=== PATIENT | female | born 1980 | race Caucasian/White ===

== ENCOUNTER → 2020-06-01 14:15 | Outpatient (CLI) | payer OTHER, SELFPAY ==
--- NOTE | 2020-06-01 14:20 | MR_ITS ---
PROCEDURE: MR LUMBAR SPINE WO CON CLINICAL INDICATION: LEFT LUMBAR RADICULOPATHY PAIN WORSE WHEN SITTING OR LAYING. SYMPTOMS [id number] BUT LBP WORSE ON LT SIDE. PAIN, NUMBNESS, AND TINGLING DOWN LT LEG. NO INJURY. PRIOR X-RAY 07-26-16 COMPARISON: No exams were available for comparison TECHNIQUE: Standard multiplanar multiecho sequences are performed without contrast. 3-D MIP and myelographic images are also rendered and reviewed FINDINGS: There is normal alignment. The spinal cord ends at the T12-L1 level. L1-L2: Unremarkable. L2-L3: Unremarkable. L3-L4: Unremarkable. L4-5: Unremarkable. L5-S1: There is a moderate to large size central and left paracentral disc protrusion which is compressing upon the left S1 nerve root. Degenerative disc disease is present at this level with type 2 endplate changes. The protruding disc is causing canal stenosis centrally and on the left with severe left lateral recess narrowing. IMPRESSION: There is a moderate to large size central and left paracentral disc protrusion at L5-S1 which is compressing upon the left S1 nerve root. Degenerative disc disease is present at this level with type 2 endplate changes. The protruding disc is causing canal stenosis centrally and on the left with severe left lateral recess narrowing. Dictated by: Francisco Terrazas MD 06/02/2020 09:47 Francisco Terrazas MD in [place] 06/02/2020 09:47
== END ==
PROVIDERS: PCP Family Medicine; Visit Provider Family Medicine
DX: M54.16 Radiculopathy, lumbar region (principal)
CPT/HCPCS: 72148; 76376

== ENCOUNTER → 2021-07-05 13:19 | Outpatient (CLI) | payer OTHER, SELFPAY | PROVIDERS: Visit Provider Nurse Practitioner | DX: Z20.822 Contact with and (suspected) exposure to COVID-19 (principal) | CPT/HCPCS: C9803; U0003; U0005 ==

== ENCOUNTER → 2022-03-31 13:09 | Outpatient (CLI) | payer OTHER, SELFPAY ==
--- NOTE | 2022-03-31 13:09 | US_ITS ---
PROCEDURE INFORMATION: Exam: US Right Breast, Complete Exam date and time: 03/31/2022 1:43 PM Age: 41 years old Clinical indication: Mass, lump, or swelling; Right; Additional info: Right breast mass at 10:00 TECHNIQUE: Imaging protocol: Complete ultrasound of all four quadrants of the Right breast and the retroareolar regions, including ultrasound of the axilla when performed. COMPARISON: MG MM DIG MAMM BI DX W/CAD 03/31/2022 1:15 PM FINDINGS: Breast: High resolution sonography of the RIGHT breast at the site of palpable abnormality at 10 o'clock position 10 cm from the nipple corresponds to a markedly hypodense spiculated nodule measuring approximately 3.9 x 3.6 x 2.0 cm with internal vascularity. . Smaller complex cystic nodules at 1 o'clock position 4 cm from the nipple measures 1.1 x 1.1 x 0.7 cm; and at 5 o'clock position 2 cm from the nipple measures 3 x 5 x 6 mm. . Lymph nodes: Enlarged RIGHT axillary lymph nodes measuring up to 2 cm in the long axis. IMPRESSION: 1. Spiculated nodule at 10 o'clock position corresponding to the palpable abnormality highly suspicious for malignancy (concordant with recent mammogram). Recommend biopsy. 2. Complex cystic nodules at 1 and 5 o'clock positions as described. 3. Enlarged RIGHT axillary lymph nodes may represent metastatic disease. ASSESSMENT: BI-RADS 5: Highly Suggestive of Malignancy: Appropriate Action Should Be Taken (likelihood of cancer is more than 95%)
--- NOTE | 2022-03-31 13:09 | MM_ITS ---
PROCEDURE INFORMATION: Exam: US Right Breast, Complete MG Right Diagnostic Breast Tomosynthesis Exam date and time: 03/31/2022 1:15 PM Age: 41 years old Clinical indication: Concern for right breast lump. No family history of breast cancer. TECHNIQUE: Imaging protocol: Complete ultrasound of all four quadrants of the Right breast and the retroareolar regions, including ultrasound of the axilla when performed. Right Diagnostic tomosynthesis and 2D mammography including computer-aided detection (CAD) when performed. Unilateral or bilateral exam. COMPARISON: No relevant prior studies available. FINDINGS: MAMMOGRAPHY: Breast composition: The breasts are heterogeneously dense, which may obscure small masses. Mass: Palpable finding at the triangular marker corresponds to a 3.7 cm spiculated mass/asymmetry in the right upper upper outer quadrant, posterior 3rd. Architectural distortion: None. Calcifications: Punctate calcifications more regionally in the left upper breast, inner and outer quadrants, middle 3rd. Asymmetric density: None. Skin thickening: None. Axillary adenopathy: Borderline dense axillary nodes bilaterally. ULTRASOUND: Right sonography, all 4 quadrants, retroareolar and axilla. At the palpable area at 10 o'clock 10 cm from the nipple, corresponding to the mammographic finding as well is an irregular solid slightly vascular mass measuring 3.9 x 2.0 by 3.6 cm is highly suspicious for cancer. Several complicated cysts, at 1 o'clock 4 cm from the nipple measuring 1.1 x 1.1 x 0.8 cm, at 5 o'clock 2 cm from the nipple measuring 0.6 by 0.5 x 0.3 cm. Several axillary lymph nodes, with suggestion of thickened elpidio, may be abnormal. IMPRESSION: See comment Palpable mass in the right breast at 10 o'clock corresponds mammographic and sonographic mass which is highly suspicious for cancer and ultrasound-guided biopsy is recommended. Indeterminate right axillary lymph nodes, suggest ultrasound-guided fine-needle aspiration as clinically indicated. For left breast calcifications, recommend adding magnification views in CC and true lateral. For possible dense left axillary lymph nodes, suggest adding left axillary ultrasound. ASSESSMENT: BI-RADS Category 5: Highly suggestive of malignancy
== END ==
PROVIDERS: PCP Obstetrics & Gynecology; Visit Provider Obstetrics & Gynecology
DX: N63.11 Unspecified lump in the right breast, upper outer quadrant (principal)
CPT/HCPCS: 76641; 77062; 77066; G0279

== ENCOUNTER → 2022-04-13 08:16 | Outpatient (CLI) | payer OTHER, SELFPAY ==
--- NOTE | 2022-04-13 08:16 | US_ITS ---
FINAL REPORT CLINICAL HISTORY: RT breast nodule 10:00, dr ferrell FINDINGS: Ultrasound directed FNA right axillary lymph node History: Right breast mass. Mild right axillary adenopathy Technique: Standard written informed consent was obtained. A few borderline enlarged lymph nodes were identified in the right axilla. Largest most accessible lymph node was targeted for FNA. Due to small size and depth of the lymph node FNA was performed. Approximately 3 passes were made with a 25-gauge needle. Specimen was submitted in appropriate fluid for cytology. IMPRESSION: Technically successful FNA of right axillary lymph node Authenticated and ERN
--- NOTE | 2022-04-13 09:03 | MM_ITS ---
FINAL REPORT CLINICAL HISTORY: .s/p clip placement FINDINGS: MAMMOGRAM RIGHT TECHNIQUE: Standard digital 2-D views COMPARISON: None DENSITY: There are scattered areas of fibroglandular density FINDINGS: Post biopsy marker clip is noted to be in satisfactory position. The clip is noted in the anterior portion of the right upper outer quadrant mass. Postbiopsy changes are noted. IMPRESSION: Biopsy marker clip in good position Authenticated and ERN
--- NOTE | 2022-04-13 09:19 | US_ITS ---
FINAL REPORT CLINICAL HISTORY: Right breast mass FINDINGS: ULTRASOUND-GUIDED RIGHT BREAST CORE BIOPSY TECHNIQUE: Limited images were obtained to localize region of interest. The right breast was prepped in a routine sterile fashion and locally anesthetized with 1% lidocaine. Standard written informed consent was obtained. The biopsy needle was positioned within the outer periphery of the lesion. A total of 3 passes were made with a 16 gauge core biopsy needle. A biopsy marker clip was deployed in satisfactory position. Postbiopsy mammogram showed postbiopsy changes with clip in satisfactory position. Procedure was well tolerated . CONCLUSION: 1. Technically successful ultrasound guided core biopsy of right breast lesion as above. 2. 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 Authenticated and ERN
== END ==
PROVIDERS: PCP Obstetrics & Gynecology; Visit Provider Surgery
DX: N63.12 Unspecified lump in the right breast, upper inner quadrant (principal); R59.9 Enlarged lymph nodes, unspecified
CPT/HCPCS: 10005; 19083; 77065

== ENCOUNTER → 2022-04-20 14:14 | Outpatient (CLI) | payer OTHER, SELFPAY ==
--- NOTE | 2022-04-20 14:14 | US_ITS ---
PROCEDURE INFORMATION: Exam: US Left Non-Vascular Joint or Other Extremity Structure Exam date and time: 04/20/2022 3:30 PM Age: 41 years old Clinical indication: Condition or disease and abnormal findings; Abnormal imaging study; Lt axillary only to eval nodes-- recent dx of RT braest CA; Other: Abn mamm; Patient HX: Eval lt axillary for nodes recent dx RT breast CA; Additional info: Breast mass TECHNIQUE: Imaging protocol: Left US joint or other nonvascular extremity structure or structures. Real-time ultrasound with image documentation. Limited study. Exam focused on the upper extremity in the region of clinical interest. COMPARISON: No relevant prior studies available. FINDINGS: Soft tissues: Unremarkable. No loculated collections. Lymph nodes: There are multiple variably-sized lymph nodes, all of which demonstrate reniform appearance, fatty hilum and hypoechoic cortex. IMPRESSION: Multiple nodes without suspicious features.
--- NOTE | 2022-04-20 14:14 | MM_ITS ---
PROCEDURE INFORMATION: Exam: Left Diagnostic Breast Tomosynthesis Exam date and time: 04/20/2022 2:07 PM Age: 41 years old Clinical indication: Patient recalled on the basis of a screening mammogram for further evaluation; Left breast; calcifications TECHNIQUE: Imaging protocol: Left Diagnostic tomosynthesis and 2D mammography including computer-aided detection (CAD) when performed. Unilateral or bilateral exam. COMPARISON: No relevant prior studies available. FINDINGS: MAMMOGRAPHY: Digital diagnostic magnification views of the left upper outer quadrant demonstrates scattered punctate calcifications without tight clustering. The calcifications are benign. There is a typographical error in the original report dated 03/31/2022. There are no suspicious calcifications in the left medial breast IMPRESSION: Benign left breast calcifications. Recent diagnosis of contralateral breast cancer. ASSESSMENT: BI-RADS Category 2: Benign, based on the left-sided diagnostic images
== END ==
PROVIDERS: PCP Surgery; Visit Provider Surgery
DX: R92.8 Other abnormal and inconclusive findings on diagnostic imaging of breast (principal); R59.9 Enlarged lymph nodes, unspecified
CPT/HCPCS: 76882; 77061; 77065; G0279

== ENCOUNTER → 2022-05-02 11:53 | Outpatient (CLI) | payer OTHER, SELFPAY ==
[2022-05-02 12:50] LABS: Basophils # 0.1 K/mm3 (0-0.2); Basophils % 0.7 % (0.1-2.0); Eosinophils # 0.1 K/mm3 (0.0-0.4); Eosinophils % 0.5 % (0.1-12.0); Hematocrit 45.9 % (37.0-47.0); Hemoglobin 14.7 g/dL (12.2-16.2); Lymphocytes # 2.8 K/mm3 (0.7-4.5); Lymphocytes % 31.6 % (10-50); Mean Corpuscular HGB Conc 32.1 g/dL (31.8-35.4); Mean Corpuscular Hemoglobin 29.8 pg (27.0-31.2); Mean Corpuscular Volume 92.9 fl (81-99); Monocytes # 0.3 K/mm3 (0.1-1.0); Monocytes % 3.8 % (1.7-9.3); Neutrophils # 5.5 K/mm3 (1.8-7.8); Neutrophils % 63.3 % (37.0-80.0); Platelet Count 334 K/mm3 (142-424); Red Blood Count 4.94 M/mm3 (4.20-5.40); Red Cell Distribution Width 13.6 % (11.5-17.5); White Blood Count 8.7 K/mm3 (4.8-10.8)
[2022-05-02 13:11] LABS: Urine Pregnancy, HCG Qual. Negative (Negative)
[2022-05-02 14:10] LABS: Anion Gap 16.9 mEq/L (5-15); Blood Urea Nitrogen 8 mg/dl (7-17); Calcium 10.2 mg/dl (8.4-10.2); Carbon Dioxide 23 mmol/L (22.0-30.0); Chloride 105 mmol/L (98-107); Estimated Glomerular Filt Rate 111 ml/min (>60); GFR (African American) 134 ML/MIN (>60); Glucose 93 mg/dl (74-100); Potassium 3.9 mmoL/L (3.5-5.1); Sodium 141 mmol/L (136-145)
== END ==
PROVIDERS: PCP Obstetrics & Gynecology; Visit Provider Surgery
DX: Z01.812 Encounter for preprocedural laboratory examination (principal); N63.10 Unspecified lump in the right breast, unspecified quadrant
CPT/HCPCS: 36415; 80048; 81025; 85025

== ENCOUNTER 2022-05-04 09:39 | Observation (INO) | payer OTHER, SELFPAY ==
[2022-05-04] VITALS (16 sets, daily range): BP systolic 113–141; BP diastolic 70–89; PULSE 75–100; RESP 12–18; TEMP 36.4–43; O2SAT 98–100; BMI 23.0; BMI 27.3
--- NOTE | 2022-05-04 10:15 | NM_ITS ---
FINAL REPORT CLINICAL HISTORY: RT BREAST SENTINEL NODE INJ FINDINGS: SENTINEL NODE INJECTION HISTORY: Breast cancer. Injection for sentinel lymph node localization TECHNIQUE: Right breast was prepped in a routine sterile fashion. 6 separate subdermal injections of radiotracer agent were made in the periareolar region. A total of 1.55 mCi of technetium labeled sulfur colloid was utilized for injection. IMPRESSION: Technically successful right breast injection for sentinel lymph node localization Authenticated and ERN
--- NOTE | 2022-05-04 11:19 | P.PN_ITS ---
[facility] Disclaimer: The information contained in this section may have been updated after the patient was seen, as this information can be updated by other users. Medical History Breast cancer Surgical History H/O laparoscopy H/O lumbar discectomy H/O tubal ligation History of breast biopsy History of cholecystectomy History of sinus surgery Family History Other Hypertension Social History Smoking Status: Former smoker alcohol intake: never substance use type: denies use current occupational status: employed Travel in the last 8 weeks: Inside the [place] household members: spouse housing: house lives independently: Yes marital status: education level: high school sexually active: Yes special shantell needs: No agree to transfusion: No do you feel safe at home: Yes victim of physical abuse: No victim of emotional abuse: No victim of sexual abuse: No would you like helpful sources: No [facility] Anesthesia Checklist Patient Identification Patient Identification: Verbal (Name & ) Structural Data Admitted From: Home Planned Operative Procedure/s: mastectomy NPO Status Verified Time NPO: 00:00 Additional verifications Anesthesia Reactions: No Hx Blood Transfusions: No Blood Transfusion Reaction: No Airway Assessment C-Spine Mobility Assessed: Yes TMJ Mobility Assessed: Yes Dentition: Good Dentition Neurological Assessment Level of Consciousness: Awake, Alert and Appropriate Anesthesia Plan Anesthesia Risk discussed: Yes Anesthesia Plan: Verified ASA Class: II Anesthesia Type: General
--- NOTE | 2022-05-04 12:00 | EXP.GEN.HP ---
HPI HPI HPI: This is a 41-year-old female with newly-diagnosed right breast cancer. HPI from recent outpatient evaluation forwarded below. Forwarded from recent outpatient evaluation: Details: The patient returns for follow-up of right axillary ultrasound fine-needle aspiration and right breast mass core needle biopsy.? She is scheduled to undergo additional left mammogram views later today. 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 The patient is also being evaluated by Dr. Mcintyre and is likely to undergo endometrial ablation.? Please see truncated portion of intraoffice sophia forwarded below. Forwarded from interoffice sophia (Dr. Mcintyre): I called her with negative BRCA results She has f/u with Dr. Baires on 04/20 to discuss biopsy results and surgical plans for breast cancer I asked her to call us after that appointment because she is having excessive bleeding and cancer is both estrogen and progesterone receptor positive, so we cannot use any hormonal medical therapies for treatment of bleeding and she will need to have endometrial ablation Once she is scheduled for breast surgery, I would like to try and coordinate to do ablation while she is already under anesthesia for breast surgery [facility] Disclaimer: The information contained in this section may have been updated after the patient was seen, as this information can be updated by other users. Medical History Breast cancer Surgical History H/O laparoscopy H/O lumbar discectomy H/O tubal ligation History of breast biopsy History of cholecystectomy History of sinus surgery Family History Other Hypertension Social History Smoking Status: Former smoker alcohol intake: never substance use type: denies use current occupational status: employed Travel in the last 8 weeks: Inside the [place] household members: spouse housing: house lives independently: Yes marital status: education level: high school sexually active: Yes special shantell needs: No agree to transfusion: No do you feel safe at home: Yes victim of physical abuse: No victim of emotional abuse: No victim of sexual abuse: No would you like helpful sources: No Meds Home Medications and Allergies Home Medications Medication Instructions Recorded Confirmed Type ascorbic acid (vitamin C) 100 mg 100 mg PO DAILY Supplement 04/28/22 05/04/22 History tablet (Vitamin C) New Prescriptions to Start Prescriptions: Allergies Allergy/AdvReac Type Severity Reaction Status Date / Time gabapentin Allergy Mild vomiting Verified 05/03/22 10:17 and passed out adhesive AdvReac Verified 05/04/22 08:21 Exam Data for Last 24 hours Vital signs and Labs for Last 24 Hours: Temp Pulse Resp BP Pulse Ox 98.9 F 100 H 18 130/83 100 05/04/22 08:23 05/04/22 08:23 05/04/22 08:23 05/04/22 08:23 05/04/22 08:23 I & O for Last 24 hours: Intake & Output 05/02/22 05/03/22 05/04/22 05/05/22 11:59 11:59 11:59 11:59 Weight 130 lb Constitutional Constitutional: no acute distress *Routine HEENT Exam Head: Present normocephalic Eye: Present EOMI ENT: Present mucous membranes moist *Routine Neck Exam Neck: Present full ROM Routine Chest/Breast/Axilla Exam Breast: Present mass Comments: Unchanged right breast mass (right axillary tail) *Routine Respiratory Exam Respiratory: Absent respiratory distress *Routine Cardiovascular Exam Cardiovascular: Present RRR *Routine Abdominal E
--- NOTE | 2022-05-04 12:33 | P.OP_ITS ---
Date of procedure: 05/04/22 Pre-op Diagnosis:: 1. Heavy Menstrual Bleeding 2. Dysfunctional Uterine Bleeding 3. ER and NM Receptor Positive Breast Cancer Post-op Diagnosis:: Same Procedure performed:: Diagnostic Hysteroscopy Novasure Endometrial Ablation Surgeon:: Natacha Mcintyre MD Piano Refinisher(s):: None COMPLIANCE INTERN:: Thierry Nazario Anesthesia: GETA Estimated blood loss (mL): 5 Operative findings:: Normal appearing uterine cavity without visible polyps or fibroids Operative note:: The patient was taken to the OR for scheduled sentinal node biopsy and right mastectomy. Because her breast cancer precludes hormonal management of the heavy and dysfunctional uterine bleeding that she is currently experiencing, arrangements were coordinated to perform an endometrial ablation while she was under anesthesia for her breast procedures. The breast procedures are documented by her general surgeon, Dr. David Baires, and I performed the endometrial ablation between the sentinal node and mastectomy. After the sentinal node biopsy had been completed, she was repositioned in lithotomy position and the vagina was prepped. The cervix was dilated until the hysteroscope could be accomodated. The hysteroscope was introduced through the cervix into the uterus and the cavity surveyed. No fiborids or polyps were observed within the cavity, and the cavity appeared normal. The hysteroscope was removed and the Novasure device was introduced into the uterus. The cavity length was measured at 5.5cm and width at 4.5cm, and the cavity assessment was successful. The Novasure was deployed and the endometrial ablation was completed in 118seconds, and without complication. All instruments were removed from her vagina, and the patient was repositioned into a supine position for the subsequent mastectomy. Condition: stable Disposition: PACU Specimens:: None Complications:: None
--- NOTE | 2022-05-04 13:45 | SUR.OPER ---
procedures done separately. All counts and sterile draping completed between cases. Dr. arellano Senitinel node procedure started at 1113 and ended at 1128. hy/solange procedure started at 1148 and ended at 1255. right mastectomy start time 1228-end time completed on chart
--- NOTE | 2022-05-04 14:22 | P.PNANES_ITS ---
[facility] Anesthesia Record Part I Anesthesia Record I Intake, IV Amount: 1,800 Estimated blood loss (mL): 100 Urine output (mL): 200 Blood Pressure: 125/75 SaO2: 98 Pulse Rate: 86 Respiratory Rate: 12 Temperature: 97.6 F Patient is:: Awake and Stable Stable to PACU at:: 14:15
--- NOTE | 2022-05-04 14:31 | P.OP_ITS ---
Date of procedure: 05/04/22 Pre-op Diagnosis:: Right breast cancer Post-op Diagnosis:: Same Procedure performed:: Right axillary sentinel lymph node biopsy Right mastectomy Surgeon:: Steve Baires MD RESTAURANT ASSOCIATE:: David Morrell Anesthesia: GETA Estimated blood loss (mL): 100 Operative findings:: Minimal radioisotope uptake beyond the axillary tail mass Mild uptake of methylene blue within resected lymph nodes Diagonal incision secondary to axillary tail location of cancer Operative note:: After informed consent was obtained the patient was taken to the radiology department where injection of radioisotope was completed. Please see separate procedure report for detail. She was then transferred to the operative suite where her right axillary region was prepped and draped in a sterile fashion. Neoprobe evaluation revealed a mid axillary location for incision. The region was infiltrated with 1% lidocaine. Once the incision was completed electrocautery was utilized to transect through the deeper subcutaneous tissue. Firm/mobile lymph nodes were palpated in the deep axilla. The lymph nodes were carefully elevated. Minimal Neoprobe uptake was noted. The lymph nodes were transected free from surrounding tissue and passed off for pathologic evaluation. Separate evaluation for radioisotope uptake revealed no significant reading. A small amount of blue dye was noted. Essentially, the axillary tail mass was the only region of uptake (only background readings noted before and after resection of lymph nodes). Palpation revealed no additional firm nodes in the region. The wound was irrigated and skin was reapproximated with 4-0 nylon. Sterile dressings were applied and the patient was then prepped and draped for her gynecologic procedure performed by Dr. Mcintyre. Please see separate operative report for detail. Once the gynecologic procedure was completed the patient's right chest/breast was prepped and draped in a sterile fashion. An elliptical incision to include the axillary mass was then completed in a diagonal fashion . Tissue flaps were carefully raised with electrocautery along the superior and inferior margins. The underlying breast tissue was then resected from the musculature utilizing electrocautery. The dissection did approach the axillary region laterally secondary to the location of the primary tumor. Although a formal axillary dissection was not completed, a portion of the axillary contents were included with the specimen. The specimen was marked for orientation and passed off for pathologic evaluation. Skin was then reapproximated with interrupted 4-0 nylon after 10 flat Farhan-Simmons drains (x2) were placed through 2 separate stab incisions. One drain was placed in the axillary region and one was placed along the pectoralis. Dressings were applied and the patient was transferred to recovery in stable condition after extubation. Condition: stable Disposition: PACU Specimens:: Right axillary sentinel lymph node Right mastectomy Complications:: No immediate
--- NOTE | 2022-05-04 15:05 | SUR.PHASEI ---
[id number] called and gave detailed report to Torito Mike RN [id number] transported via bed to med/surg. vital signs stable. denies pain at this time. left in stable condition with Torito Mike RN at bedside.
[2022-05-04 15:40] LABS: Microscopic,Cath URINE MICROSCOPIC (MICROSCOPIC)
[2022-05-04 17:19] LABS: Appearance,Urine/Cath CLEAR (Clear); Bilirubin,Cath Negative (Negative); Blood, Urine/Cath Negative (Negative); Color,Urine/Cath STRAW (Yellow); Glucose,Urine/Cath (UA) Negative (Negative); Ketones,Urine/Cath Negative (Negative); Leukocyte Esterase,Cath Negative (Negative); Nitrate,Cath Negative (Negative); Protein,Urine/Cath Negative (Negative); Specific Gravity, Urine/Cath 1.015 (1.005-1.030); Urobilinogen,Cath 0.2 EU/dl (0.2)
--- NOTE | 2022-05-04 18:36 | PC.NURSE ---
PT HAS DONE WELL. ALERT X4. NO C/O PAIN, N/V. VSS. 2 ERIS DRAINS AT RI CHEST WITH SEROSANGUINEOUS OUTPUT. DSG TO RT BREAST IN PLACE, CDI. LUNGS CLEAR. AT BEDSIDE. NB WITHIN REACH. NO CONCERNS VOIVED AT THIS TIME.
[2022-05-04 19:39] LABS: Bacteria,Urine/Cath TRACE /lpf; Mucus,Urine/Cath Trace /lpf
[2022-05-05] VITALS: BP 121/68; PULSE 90; RESP 18; TEMP 37.1; O2SAT 99
[2022-05-05 04:00] VITALS: BP 100/50; PULSE 74; RESP 18; TEMP 37.2; O2SAT 100
[2022-05-05 05:00] VITALS: BMI 29.7
--- NOTE | 2022-05-05 06:14 | PC.NURSE ---
MEDICATED X 1 WITH NORCO 5/325MG FOR PAIN AT OPERATIVE SITE. RIGHT ARM ELEVATED ON PILLOW. SURGICAL DRSG C/D/I. ERIS DRAINS X 2 INTACT TO TIGHT CHEST WALL. TOTAL ERIS DRAINS WAS 120 ML BLOODY DRAINAGE. VISITOR AT BEDSIDE. VS STABLE/AFEBRILE.
[2022-05-05 06:53] LABS: Basophils % 0.3 % (0.1-2.0); Eosinophils # 0.2 K/mm3 (0.0-0.4); Eosinophils % 1.7 % (0.1-12.0); Hematocrit 34.9 % (37.0-47.0); Hemoglobin 11.7 g/dL (12.2-16.2); Lymphocytes # 2.6 K/mm3 (0.7-4.5); Lymphocytes % 18.4 % (10-50); Mean Corpuscular HGB Conc 33.5 g/dL (31.8-35.4); Mean Corpuscular Hemoglobin 30.2 pg (27.0-31.2); Mean Corpuscular Volume 90.1 fl (81-99); Mean Platelet Volume 8.5 fl (7.4-10.4); Monocytes # 0.6 K/mm3 (0.1-1.0); Monocytes % 4.4 % (1.7-9.3); Neutrophils # 10.6 K/mm3 (1.8-7.8); Neutrophils % 75.2 % (37.0-80.0); Platelet Count 289 K/mm3 (142-424); Red Blood Count 3.87 M/mm3 (4.20-5.40); Red Cell Distribution Width 13.7 % (11.5-17.5); White Blood Count 14.1 K/mm3 (4.8-10.8)
--- NOTE | 2022-05-05 07:03 | EXP.SURG.PN ---
Subjective Patient reports: no new complaints Exam Data for Last 24 hours Vital signs and Labs for Last 24 Hours: Temp Pulse Resp BP Pulse Ox 98.9 F 74 18 100/50 L 100 05/05/22 04:00 05/05/22 04:00 05/05/22 04:00 05/05/22 04:00 05/05/22 04:00 Laboratory Results - last 24 hr 05/04/22 11:45: Urine Color Straw, Urine Appearance Clear, Urine pH 6.0, Ur Specific [place] 1.015, Urine Protein Negative, Urine Glucose (UA) Negative, Urine Ketones Negative, Urine Blood Negative, Urine Nitrate Negative, Urine Bilirubin Negative, Urine Urobilinogen 0.2, Ur Leukocyte Esterase Negative, Ur Squamous Epith Cells 5-10, Urine Bacteria Trace 05/05/22 06:41: WBC 14.1 H D, RBC 3.87 L, Hgb 11.7 L, Hct 34.9 L, MCV 90.1, MCH 30.2, MCHC 33.5, RDW 13.7, Plt Count 289, MPV 8.5, Neut % (Auto) 75.2, Lymph % (Auto) 18.4, [place] % (Auto) 4.4, Eos % (Auto) 1.7, Baso % (Auto) 0.3, Neut # (Auto) 10.6 H, Lymph # (Auto) 2.6, [place] # (Auto) 0.6, Eos # (Auto) 0.2, Baso # (Auto) 0.0 I & O for Last 24 hours: Intake & Output 05/02/22 05/03/22 05/04/22 05/05/22 11:59 11:59 11:59 11:59 Intake Total 2621 / 2621 Output Total 120 / 120 Balance 2501 / 2501 Weight 130 lb 167 lb 9 oz Constitutional Constitutional: no acute distress Routine Chest/Breast/Axilla Exam Comments: Dressings intact. No significant hematoma or cellulitis. *Routine Respiratory Exam Respiratory: Absent respiratory distress *Routine Cardiovascular Exam Cardiovascular: Absent tachycardia Progress Note: A&P Assessment and plan (1) Breast cancer, right: Status: Acute Assessment and plan: Overall, doing well status post mastectomy. Discharge home with close outpatient follow-up [facility]
--- NOTE | 2022-05-05 07:10 | EXP.DC.SUM ---
General Admission date:: 05/04/22 Discharge date: 05/05/22 HPI HPI HPI: This is a 41-year-old female with newly-diagnosed right breast cancer. HPI from recent outpatient evaluation forwarded below. Forwarded from recent outpatient evaluation: Details: The patient returns for follow-up of right axillary ultrasound fine-needle aspiration and right breast mass core needle biopsy.? She is scheduled to undergo additional left mammogram views later today. 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 The patient is also being evaluated by Dr. Mcintyre and is likely to undergo endometrial ablation.? Please see truncated portion of intraoffice sophia forwarded below. Forwarded from interoffice sophia (Dr. Mcintyre): I called her with negative BRCA results She has f/u with Dr. Baires on 04/20 to discuss biopsy results and surgical plans for breast cancer I asked her to call us after that appointment because she is having excessive bleeding and cancer is both estrogen and progesterone receptor positive, so we cannot use any hormonal medical therapies for treatment of bleeding and she will need to have endometrial ablation Once she is scheduled for breast surgery, I would like to try and coordinate to do ablation while she is already under anesthesia for breast surgery Hospital Course Hospital Course Hospital Course: The patient underwent right mastectomy/sentinel lymph node biopsy, as well as, diagnostic hysteroscopy and [facility] endometrial ablation (Dr. Mcintyre). Postoperatively, she convalesced well. Pain was well controlled and she had no sign of postoperative hemorrhage or other complication. She was deemed appropriate for discharge on the morning of postoperative day 1. Exam Data for Last 24 hours Vital signs and Labs for Last 24 Hours: Temp Pulse Resp BP Pulse Ox 98.9 F 74 18 100/50 L 100 05/05/22 04:00 05/05/22 04:00 05/05/22 04:00 05/05/22 04:00 05/05/22 04:00 Laboratory Results - last 24 hr 05/04/22 11:45: Urine Color Straw, Urine Appearance Clear, Urine pH 6.0, Ur Specific [place] 1.015, Urine Protein Negative, Urine Glucose (UA) Negative, Urine Ketones Negative, Urine Blood Negative, Urine Nitrate Negative, Urine Bilirubin Negative, Urine Urobilinogen 0.2, Ur Leukocyte Esterase Negative, Ur Squamous Epith Cells 5-10, Urine Bacteria Trace 05/05/22 06:41: WBC 14.1 H D, RBC 3.87 L, Hgb 11.7 L, Hct 34.9 L, MCV 90.1, MCH 30.2, MCHC 33.5, RDW 13.7, Plt Count 289, MPV 8.5, Neut % (Auto) 75.2, Lymph % (Auto) 18.4, [place] % (Auto) 4.4, Eos % (Auto) 1.7, Baso % (Auto) 0.3, Neut # (Auto) 10.6 H, Lymph # (Auto) 2.6, [place] # (Auto) 0.6, Eos # (Auto) 0.2, Baso # (Auto) 0.0 I & O for Last 24 hours: Intake & Output 05/02/22 05/03/22 05/04/22 05/05/22 11:59 11:59 11:59 11:59 Intake Total 2621 / 2621 Output Total 120 / 120 Balance 2501 / 2501 Weight 130 lb 167 lb 9 oz Constitutional Constitutional: no acute distress *Routine HEENT Exam Head: Present normocephalic and atraumatic Eye: Present EOMI ENT: Present mucous membranes moist *Routine Neck Exam Neck: Present full ROM Routine Chest/Breast/Axilla Exam Breast: Present right mastectomy *Routine Respiratory Exam Respiratory: Absent respiratory distress *Routine Cardiovascular Exam Cardiovascular: Present RRR *Routine Abdominal Exam Abdominal: Present soft *Routine Rectal Exam Patient deferred: visual exam and digital exam *Routine Exam Patient deferred: external exam *Routine Extremities Exam Extremities: Present full ROM Routine Back/Spine/Pelvis Exam Back/Spine: Present full ROM *Routine Skin Exam Skin: Absent erythema *Routine Neurological Exam Neurological: Present alert and oriented X3 Routine Psychiatric Exam Psychiatr
--- NOTE | 2022-05-05 07:29 | P.PNANES_ITS ---
[facility] Anesthesia Record Part II Anesthesia Record Part II Discharge Time: 14:49 Destination: Medical Surgical Department PACU nurse assessment reviewed?: Yes Patient Condition:: Good Anesthesia Complications:: None Swallowing reflex intact?: Yes Cyanosis?: No Blood Pressure: 121/82 Pulse Rate: 78 Temperature: 97.6 F Mental Status: Alert & Oriented Pain level:: 0 Nausea and/or vomitting:: None Intake, IV Amount: 0
[2022-05-05 07:30] VITALS: BP 121/82; PULSE 78; TEMP 36.4
[2022-05-05 08:00] VITALS: BP 112/66; PULSE 82; RESP 16; TEMP 36.8; O2SAT 100
--- NOTE | 2022-05-09 14:18 | CARE MANAGER ---
Contacted patient related to hospital discharge. She states she is doing better. She was able to get her medication and has follow up appointment with the surgeon this week. Denies questions or concerns.
== END 2022-05-05 09:30 | disposition home or self-care (01) ==
LOC: 2ND 09:40
PROVIDERS: Admitting Provider Surgery; PCP Surgery; Visit Provider Surgery
PROC: (CPT 19303; principal; 2022-05-04 10:15)
DX: C50.411 Malignant neoplasm of upper-outer quadrant of right female breast (principal); N94.6 Dysmenorrhea, unspecified; N92.0 Excessive and frequent menstruation with regular cycle; F17.210 Nicotine dependence, cigarettes, uncomplicated; Z17.0 Estrogen receptor positive status [ER+]; N93.8 Other specified abnormal uterine and vaginal bleeding
CPT/HCPCS: 19303; 38525; 58563; 36415; 38792; 81001; 85025; 96374; A9541; G0378; J2405

== ENCOUNTER → 2022-09-16 13:43 | Outpatient (CLI) | payer OTHER, SELFPAY ==
[2022-09-16 14:44] LABS: Basophils % 0.4 % (0.1-2.0); Eosinophils # 0.1 K/mm3 (0.0-0.4); Eosinophils % 0.6 % (0.1-12.0); Hematocrit 43.1 % (37.0-47.0); Hemoglobin 14.1 g/dL (12.2-16.2); Lymphocytes # 3.4 K/mm3 (0.7-4.5); Lymphocytes % 32.1 % (10-50); Mean Corpuscular HGB Conc 32.7 g/dL (31.8-35.4); Mean Platelet Volume 8.1 fl (7.4-10.4); Monocytes # 0.5 K/mm3 (0.1-1.0); Monocytes % 4.5 % (1.7-9.3); Neutrophils # 6.7 K/mm3 (1.8-7.8); Neutrophils % 62.5 % (37.0-80.0); Platelet Count 259 K/mm3 (142-424); Red Blood Count 4.68 M/mm3 (4.20-5.40); White Blood Count 10.7 K/mm3 (4.8-10.8)
[2022-09-16 15:01] LABS: Chloride 107 mmol/L (98-107); Potassium 4.4 mmoL/L (3.5-5.1); Sodium 141 mmol/L (136-145)
[2022-09-16 15:03] LABS: Blood Urea Nitrogen 8 mg/dl (7-17); Estimated Glomerular Filt Rate 110 ml/min (>60); GFR (African American) 133 ML/MIN (>60)
[2022-09-16 15:04] LABS: Alanine Aminotransferase 17 U/L (12-78); Albumin Level 4.3 g/dl (3.5-5.0); Albumin/Globulin Ratio 1.7 (1.1-1.8); Anion Gap 12.4 mEq/L (5-15); Aspartate Amino Transferase 23 U/L (14-36); Carbon Dioxide 26 mmol/L (22.0-30.0); Globulin 2.6 g/dL (1.3-3.2); Glucose 91 mg/dl (74-100); Total Protein,Serum 6.9 g/dl (6.3-8.2)
[2022-09-16 15:05] LABS: Bilirubin,Total 0.4 mg/dl (0.2-1.3)
[2022-09-16 15:06] LABS: Alkaline Phosphatase 61 U/L (38-126)
== END ==
PROVIDERS: Visit Provider Internal Medicine
DX: C50.811 Malignant neoplasm of overlapping sites of right female breast (principal); Z17.0 Estrogen receptor positive status [ER+]
CPT/HCPCS: 36415; 80053; 85025

== ENCOUNTER → 2022-11-15 13:20 | Outpatient (CLI) | payer OTHER, SELFPAY ==
[2022-11-15 13:38] LABS: Basophils % 0.3 % (0.1-2.0); Eosinophils # 0.1 K/mm3 (0.0-0.4); Eosinophils % 0.5 % (0.1-12.0); Hematocrit 38.9 % (37.0-47.0); Hemoglobin 13.2 g/dL (12.2-16.2); Lymphocytes # 3.2 K/mm3 (0.7-4.5); Mean Corpuscular HGB Conc 33.9 g/dL (31.8-35.4); Mean Corpuscular Hemoglobin 30.4 pg (27.0-31.2); Mean Corpuscular Volume 89.8 fl (81-99); Monocytes # 0.5 K/mm3 (0.1-1.0); Monocytes % 5.6 % (1.7-9.3); Neutrophils # 4.7 K/mm3 (1.8-7.8); Neutrophils % 55.5 % (37.0-80.0); Platelet Count 254 K/mm3 (142-424); Red Blood Count 4.33 M/mm3 (4.20-5.40); Red Cell Distribution Width 13.3 % (11.5-17.5); White Blood Count 8.5 K/mm3 (4.8-10.8)
[2022-11-15 13:45] LABS: Chloride 109 mmol/L (98-107); Potassium 3.7 mmoL/L (3.5-5.1); Sodium 140 mmol/L (136-145)
[2022-11-15 13:47] LABS: Blood Urea Nitrogen 8 mg/dl (7-17); Estimated Glomerular Filt Rate 110 ml/min (>60); GFR (African American) 133 ML/MIN (>60)
[2022-11-15 13:48] LABS: Alanine Aminotransferase 18 U/L (12-78); Albumin Level 3.8 g/dl (3.5-5.0); Albumin/Globulin Ratio 1.4 (1.1-1.8); Alkaline Phosphatase 45 U/L (38-126); Anion Gap 14.7 mEq/L (5-15); Aspartate Amino Transferase 23 U/L (14-36); Carbon Dioxide 20 mmol/L (22.0-30.0); Globulin 2.7 g/dL (1.3-3.2); Total Protein,Serum 6.5 g/dl (6.3-8.2)
[2022-11-15 13:49] LABS: Bilirubin,Total 0.1 mg/dl (0.2-1.3); Calcium 8.5 mg/dl (8.4-10.2); Glucose 114 mg/dl (74-100)
== END ==
PROVIDERS: Visit Provider Internal Medicine
DX: C50.811 Malignant neoplasm of overlapping sites of right female breast (principal); Z17.0 Estrogen receptor positive status [ER+]
CPT/HCPCS: 36415; 80053; 85025